=== PATIENT | female | born 1975 | race Caucasian/White ===

== ENCOUNTER 2016-10-23 05:27 | Day surgery (SDC) | payer OTHER ==
[2016-10-22 15:41] VITALS: BMI 33.3
[2016-10-23 08:29] LABS: URINE APPEARANCE SLCLOUDY; URINE BILIRUBIN NEGATIVE (NEGATIVE); URINE COLOR LTYELLOW; URINE GLUCOSE (UA) NEGATIVE (NEGATIVE); URINE KETONE NEGATIVE (NEGATIVE); URINE LEUK ESTERASE NEGATIVE (NEGATIVE); URINE NITRITE NEGATIVE (NEGATIVE); URINE PROTEIN NEGATIVE (NEGATIVE); URINE UROBILINOGEN NEGATIVE E.U./dl (0.2-1.0)
[2016-10-23 08:31] LABS: URINE BLOOD 2+ (NEGATIVE)
[2016-10-23 08:33] LABS: URINE MUCUS RARE; URINE RBC 7 /hpf (0-3); URINE WBC 1 /hpf (3-5)
[2016-10-23] MEDS ORDERED: ROCURONIUM BROMIDE 50 MG/5 ML VIAL ONE ×2 (09:07→11:08)
[2016-10-23] MEDS ORDERED: MIDAZOLAM HCL 2 MG/2 ML SINGLE DOSE VIAL ONE (09:07)
[2016-10-23] MEDS ORDERED: PROPOFOL 20 ML ONE (09:07)
--- NOTE | 2016-10-23 09:53 | HP ---
History & Physical Update - History History: No Change - Physical Physical: No Change - Assessment Assessment: No Change - Plan Plan: No Change
[2016-10-23] MEDS ORDERED: ceFAZolin SODIUM 1 GM VIAL ONE (10:05)
[2016-10-23] MEDS ORDERED: DEXAMETHASONE SOD PHOSPHATE 4 MG/1 ML VIAL ONE (10:05)
[2016-10-23] MEDS ORDERED: ceFAZolin SODIUM 1 GM VIAL IVPB ONE (10:07)
[2016-10-23] MEDS ORDERED: BUPIVACAINE HCL/PF 0.5% (5MG/ML) 10 ML VIAL IJ ONE (11:24)
[2016-10-23] MEDS ORDERED: ONDANSETRON 4 MG/2 ML VIAL IVPUSH PRN (11:28)
[2016-10-23] MEDS ORDERED: oxyCODONE HCL 5 MG TABLET PO PRN (11:28)
[2016-10-23] MEDS ORDERED: PROMETHAZINE HCL 25 MG/1 ML VIAL IVPUSH PRN (11:28)
[2016-10-23] MEDS ORDERED: LACTATED RINGERS SOLUTION 1,000 ML IV SCH (11:30)
--- NOTE | 2016-10-23 11:51 | OP ---
Operative Note - Note: Operative Date: 10/23/16 Pre-Operative Diagnosis: chronic cholecystitis; cholelithiasis Operation: lap ángel Findings: # adhesions; cholelithiasis; chronic cholecystitis Post-Operative Diagnosis: Same as Pre-op Surgeon: Ernesto Michael It Support Analyst: Gricelda Trimble Anesthesia: General Specimens Removed: gallbladder and contents Estimated Blood Loss (mls): 25 Drains & Tubes with Location: none
[2016-10-23 13:35] VITALS: TEMP 98.2
[2016-10-23 15:50] VITALS: BP 116/70; PULSE 80
--- NOTE | 2016-10-26 11:04 | OP ---
DATE OF OPERATION: 10/23/2016 PREOPERATIVE DIAGNOSIS: Chronic cholecystitis, cholelithiasis. PREOPERATIVE DIAGNOSIS: Chronic cholecystitis, cholelithiasis. PROCEDURE: Laparoscopic cholecystectomy. SURGEON: Ernesto Michael MD TRANSPORTATION SUPERINTENDENT: DONG Bonilla ANESTHESIA: General. OPERATIVE FINDINGS: There was evidence of chronic cholecystitis and cholelithiasis, multiple adhesions from previous acute cholecystitis from the omentum to the gallbladder. The rest of the findings were unremarkable. DESCRIPTION OF PROCEDURE: The patient was placed on the operating room table in supine position. After the induction of general anesthesia and the placement of sequential compression devices under the patient's lower extremity, the abdomen was prepped with ChloraPrep and draped in sterile fashion. Pneumoperitoneum was established at the umbilicus using a Veress needle, and once 15 mmHg was obtained, the 5-mm port was placed, and additional 5-mm lateral ports in the subxiphoid 11-mm port, and a laparoscopy carried out, and the previously noted findings were observed. Using blunt dissection and electrocautery, omentum was taken down from the gallbladder to expose the neck of the gallbladder and the triangle of Calot where the peritoneum was opened medially and laterally using electrocautery. The cystic duct was identified crossing from the neck of the gallbladder distally to the common bile duct. It was dissected proximally and distally . Additionally, the cystic artery was similarly identified and dissected. Once a critical view of safety was taken, the duct and artery were sequentially divided after being clipped twice distally with large hemoclips and twice proximally as well. The gallbladder was then removed from the liver bed in a retrograde fashion using electrocautery. Prior to removal from the edge of the liver, hemostasis was checked for and noted to be good. The gallbladder was removed from the edge of the liver, placed in an EndoCatch, and brought out through the subxiphoid port. Pneumoperitoneum was reestablished, hemostasis verified again, then all ports were removed under laparoscopic vision without evidence of bleeding from the port sites. All port sites were then infiltrated with 0.5% Marcaine and the skin edges were reapproximated with 4-0 Biosyn in a subcuticular and continuous fashion. Steri-Strips and Band-Aid dressings were placed and the procedure terminated at this point and the patient aroused from general anesthesia and transferred to the post anesthesia care unit in stable condition awake and alert. ESTIMATED BLOOD LOSS: Minimal. DRAINS: None. SPECIMENS: Gallbladder and contents fresh to pathology. I, Ernesto Michael, was physically present in the operating room from the time the patient was placed on the operating room table until she was transferred to the post anesthesia care unit in [employer]. MD TOSHA Johnson/[id number]
--- NOTE | 2016-10-26 13:54 | PATH ---
Surgical Pathology Report Patient Name: NEEL MELENDREZ [facility]. Rec. #: [id number] /Age/Gender: 1975 (Age: 41) / F Account: [id number] Location: [facility] SURGICAL Taken: 10/23/2016 Received: 10/23/2016 Reported: 10/26/2016 Physicians: Ernesto Michael MD Specimen(s) Received GALLBLADDER Clinical History Chronic cholecystitis Final Diagnosis GALLBLADDER, CHOLECYSTECTOMY: CHRONIC CHOLECYSTITIS WITH FOCAL XANTHOGRANULOMATOUS FEATURES; CHOLELITHIASIS. Electronically Signed Marciano Dailey M.D. Gross Description Received in formalin, labeled "gallbladder" is a 9.3 x 2.0 x 2.0 cm gallbladder with a 0.2 cm in length portion of cystic duct attached. The outer surface is davison-pink with a focal defect and varies from smooth to shaggy. The lumen contains red blood as well as a 2.2 cm in greatest dimension davison, ovoid cholelith. The mucosa is hyperemic. The wall of the gallbladder is focally thickened and measures up to 1.0 cm in thickness. Director Of Accounts Receivable sections are submitted in one cassette. /10/23/2016 saudi10/23/2016
--- NOTE | 2016-10-27 09:39 | SURG ---
Surgery Director Digital Analytics Note Director Digital Analytics: Gricelda Trimble PA-C Date of Service: 10/23/16 Diagnosis: chronic cholecystitis; cholelithiasis Procedure: corona neal I was present for the entirety of the operative procedure. For further detail, please refer to operative report. Visit type - Case Type Case Type: Scheduled Admission - Emergency Emergency Visit: No - New patient This patient is new to me today: Yes Date on this admission: 10/27/16 - Critical Care Critical Care patient: No
== END 2016-10-23 15:00 | disposition home or self-care (01) ==
LOC: JASU-SURG 05:27
PROVIDERS: ATTEND Surgery
PROC: 0FT44ZZ Resection of Gallbladder, Percutaneous Endoscopic Approach (ICD-10-PCS; principal; 2016-10-23 09:30)
DX: K80.10 Calculus of gallbladder with chronic cholecystitis without obstruction (principal)
CPT/HCPCS: 36415; 81003; 81015; 82947; 84702; 86850; 86900; 86901; 88304-TC; 94760

== ENCOUNTER 2018-08-02 05:05 | Inpatient (IN) | payer OTHER ==
[2018-08-02] MEDS ORDERED: DEXAMETHASONE SOD PHOSPHATE/PF 10 MG/ML SDV ONE (09:36)
[2018-08-02] MEDS ORDERED: BUPIVACAINE HCL/PF 0.25% (2.5MG/ML) 10 ML VIAL ONE (09:36)
[2018-08-02] MEDS ORDERED: MIDAZOLAM HCL 2 MG/2 ML SINGLE DOSE VIAL ONE ×2 (09:38)
[2018-08-02] MEDS ORDERED: LIDOCAINE HCL/PF 2% SDV 5ML VIAL ONE (09:40)
[2018-08-02] MEDS ORDERED: ceFAZolin SODIUM 1 GM VIAL ONE (09:40)
[2018-08-02] MEDS ORDERED: SUCCINYLCHOLINE CHLORIDE 200 MG/10 ML VIAL ONE (09:40)
[2018-08-02] MEDS ORDERED: DEXAMETHASONE SOD PHOSPHATE 4 MG/1 ML VIAL ONE (09:40)
[2018-08-02] MEDS ORDERED: SODIUM CHLORIDE 0.9% P/F 10 ML VIAL IJ ONE (09:40)
[2018-08-02] MEDS ORDERED: ROCURONIUM BROMIDE 50 MG/5 ML VIAL ONE (09:40)
[2018-08-02] MEDS ORDERED: LACTATED RINGERS SOLUTION 1,000 ML IV SCH (09:45)
[2018-08-02 10:14] VITALS: BMI 35.3
[2018-08-02] MEDS ORDERED: KETAMINE HCL 200 MG/20 ML VIAL ONE (11:22)
[2018-08-02] MEDS ORDERED: ceFAZolin SODIUM 1 GM VIAL IVPB ONE (11:45)
--- NOTE | 2018-08-02 11:51 | HP ---
Admitting History and Physical - Admission Chief Complaint: Morbid obesity History Source: Patient Limitations to Obtaining History: No Limitations - Past Medical History ...LMP: 07/14/18 Endocrine: Yes: Diabetes Mellitus - Smoking History Smoking history: Never smoked Have you smoked in the past 12 months: No - Alcohol/Substance Use Hx Alcohol Use: No Home Medications - Allergies Allergies/Adverse Reactions: Allergies Allergy/AdvReac Type Severity Reaction Status Date / Time No Known Allergies Allergy Verified 08/02/18 09:31 - Home Medications Home Medications: Ambulatory Orders Glimepiride 4 mg PO BID 08/01/18 Famotidine [Pepcid] 20 mg PO BID #60 tablet 08/02/18 Oxycodone HCl/Acetaminophen [Percocet 5-325 mg Tablet] 1 - 2 tab PO Q6H #28 tab MDD 4 08/02/18 Family Disease History - Family Disease History Family History: Denies Review of Systems - Review of Systems Constitutional: denies: Chills, Fever HENT: reports: No Symptoms Neck: reports: No Symptoms Cardiovascular: reports: No Symptoms Respiratory: reports: No Symptoms Gastrointestinal: reports: No Symptoms Neurological: reports: No Symptoms Pain Intensity: 0 Physical Examination Vital Signs: Vital Signs Temperature 98.3 F 08/02/18 09:29 Pulse Rate 90 08/02/18 09:29 Respiratory Rate 16 08/02/18 09:29 Blood Pressure 130/83 08/02/18 09:29 O2 Sat by Pulse Oximetry (%) 100 08/02/18 09:30 Constitutional: Yes: Calm HENT: Yes: WNL Neck: Yes: WNL Cardiovascular: Yes: WNL Respiratory: Yes: WNL Gastrointestinal: Yes: Soft, Abdomen, Obese Neurological: Yes: Alert, Oriented Problem List - Problems (1) Morbid obesity due to excess calories Code(s): E66.01 - MORBID (SEVERE) OBESITY DUE TO EXCESS CALORIES (2) BMI 35.0-35.9,adult Code(s): Z68.35 - BODY MASS INDEX (BMI) 35.0-35.9, ADULT (3) Diabetes mellitus type 2 in obese Code(s): E11.69 - TYPE 2 DIABETES MELLITUS WITH OTHER SPECIFIED COMPLICATION; E66.9 - OBESITY, UNSPECIFIED Assessment/Plan Laparoscopic possible open vertical sleeve gastrectomy, possible liver biopsy, EGD
[2018-08-02] MEDS ORDERED: BUPIVACAINE HCL/PF (5 MG/ML) 30 ML VIAL IJ ONE (12:07)
[2018-08-02] MEDS ORDERED: ESMOLOL HCL 100,000 MCG/10 ML VIAL ONE (12:27)
[2018-08-02] MEDS ORDERED: NEOSTIGMINE METHYLSULFATE 0.5 MG/ML - 10 ML MDV ONE (12:45)
[2018-08-02] MEDS ORDERED: GLYCOPYRROLATE 0.2 MG/1 ML VIAL ONE (12:45)
[2018-08-02] MEDS ORDERED: KETOROLAC TROMETHAMINE 30 MG/1 ML VIAL ONE (12:45)
[2018-08-02] MEDS ORDERED: HYDROmorphone HCl 2 MG/ML VIAL IVPB PRN (12:54)
--- NOTE | 2018-08-02 12:57 | OP ---
Operative Note - Note: Operative Date: 08/02/18 Pre-Operative Diagnosis: Morbid obesity. BMI 35.4. Diabetes Mellitus type 2 Operation: Laparoscopic vertical sleeve gastrectomy, liver biopsy, EGD Post-Operative Diagnosis: Other (as well as hepatomegaly) Surgeon: Emigdio Gaona Adobe Maker: Kip Liz Anesthesia: General Specimens Removed: Greater curvature of stomach. Liver biopsy Estimated Blood Loss (mls): 30 Drains & Tubes with Location: 36 fr Bougie Operative Report Dictated: Yes
[2018-08-02] MEDS: SODIUM CHLORIDE 1,000 ML IV SCH (13:10)
--- NOTE | 2018-08-02 13:11 | SURG ---
Surgery Medical Laboratory Technologist Note Medical Laboratory Technologist: Kip Liz PA-C Date of Service: 08/02/18 Diagnosis: Morbid obesity due to excess calories Procedure: Laproscopic sleeve gastrectomy, EGD, liver biopsy I was present for the entirety of the operative procedure. For further detail, please refer to operative report. Visit type - Case Type Case Type: Scheduled - Emergency Emergency Visit: No - New patient This patient is new to me today: Yes Date on this admission: 08/02/18
--- NOTE | 2018-08-02 13:22 | SPEC ---
DATE OF OPERATION: 08/02/2018 SURGEON: Emigdio Gaona MD MECHANICAL FIELD ENGINEER: Kip Liz PA-C PREOPERATIVE DIAGNOSES: 1. Morbid obesity. 2. Body mass index of 35.4. 3. Diabetes mellitus type 2. POSTOPERATIVE DIAGNOSIS: 1. Morbid obesity. 2. Body mass index of 35.4. 3. Diabetes mellitus type 2. 4. Hepatomegaly. PROCEDURE: 1. Laparoscopic vertical sleeve gastrectomy. 2. Laparoscopic wedge liver biopsy. 3. Esophagogastroduodenoscopy. SPECIMEN: 1. Greater curvature of the stomach. 2. Liver biopsy. ESTIMATED BLOOD LOSS: 30 mL. DRAINS: None. ANESTHESIA: GET. BOUGIE SIZE: 36-[place]. REASON FOR PROCEDURE: This is a 43-year-old female who presents to the office for weight loss options. After describing the different options, he decided to proceed with a laparoscopic, possible open vertical sleeve gastrectomy, possible liver biopsy, and upper endoscopy. The patient was seen by the respective subspecialties and cleared for surgery. The risks and benefits of the procedure were explained. These included bleeding, infection, hernia, GA, DVT, PE, injury to surrounding structures including the liver, colon, bowel, spleen, esophagus, vessel injury, nerve injury, weight regain, gastric leak, staple line leak, sleeve leak, obstruction, vitamin deficiency, hair loss and as some of the possible complications. The patient understood and signed informed consent. DESCRIPTION OF PROCEDURE: The patient was placed supine on the operating room table. The patient underwent general endotracheal intubation. The arms were brought out at 90 degrees and secured. A footboard was placed and the legs were secured laterally with padding. The abdomen was prepped and draped in the usual sterile fashion. A timeout was performed. An incision was made in the left upper quadrant and a Veress needle inserted. Pneumoperitoneum was established. Subsequently, the Veress needle was removed and a 5-mm trocar was placed under direct visualization with the laparoscope. The laparoscopic camera was then inserted and inspection of the abdominal cavity was performed. An incision was then made in the supraumbilical area and a 15-mm trocar was placed under direct visualization. A 5-mm trocar was then placed in the right upper quadrant and a 5-mm trocar was placed below the left subcostal margin. A stab wound was made in the subxiphoid area and a Tuyet clamp inserted and removed to dilate the tract. A John liver retractor was inserted. The post was secured at the bedside by the nursing staff. The patient was placed in steep reverse Trendelenburg position and the John liver retractor was used to secure the liver towards the anterior abdominal wall. The pylorus was identified and 6 cm proximal to it, the lesser sac was entered using the LigaSure device. All lateral attachments to the greater curvature of the stomach, including the short gastric vessels, were ligated using the LigaSure device toward the gastrosplenic and gastrophrenic ligaments. Once this was done in its entirety, it was confirmed that all tubes within the nasal or oropharyngeal cavity, including a temperature probe, was removed by Anesthesia. The bougie was then inserted by Anesthesia. Transection of the stomach was then begun staying adjacent to the bougie but away from the angularis. Transection of the stomach was performed near the portion of the stomach where the lesser sac was entered. Two laparoscopic Endo-LESLIE black sal were used at this location. Laparoscopic Endo LESLIE purple staple loads were then used for the remainder of the transection until the greater curvature of the stomach was fully transected. This was done staying close to the bougie. Care was taken to stay away from the angle of His cephalad. The staple line was then inspected. Hemostasis was identified. A leak test was then performed. It was clamped distally to the staple line. Irrigation solution was placed in the left upper quadrant and air was insufflated by Anesthesia into the sleeve. No leaks were identified. No obstruction was identified. This was done through the entirety of the staple line. In addition, an upper endoscopy was performed. The endoscope was placed into the patients mouth and the entirety of the esophagus, GE junction, gastric pouch and staple line were inspected. No obstruction or leak was noted. The stomach was suctioned and the endoscope removed fully intact. At this point, the irrigation solution was suctioned and again, hemostasis was noted. A wedge liver biopsy was then performed. The left lobe of the liver was identified and a portion of the edge was grasped. Using electrocautery, a wedge of the liver was excised. This was removed and sent off the field as specimen. Hemostasis at the site of the wedge liver biopsy was attained using electrocautery. The 15-mm supraumbilical trocar was then removed and the greater curvature specimen removed from the site using a sponge stick solano. The specimen was inspected and a Veress needle inserted. The specimen insufflated adequately and no leak was identified. The staple line was noted to be intact. A Jhoan-Nelly device was then used to close the fascia with a 0 Vicryl suture at the site. Again, hemostasis was noted. The John liver retractor was then removed under direct visualization. Pneumoperitoneum was desufflated and the fascial sutures were secured. Hemostasis was noted at all incision sites and Marcaine was injected at all incision sites. All incision sites were closed using 4-0 Biosyn. Sterile dressings were applied. The patient tolerated the procedure well and was transferred to the recovery room in stable condition. The patient was transferred to telemetry for further monitoring. Silas [id number]
[2018-08-02] MEDS: ONDANSETRON 4 MG/2 ML VIAL IVPUSH PRN ×2 (13:25→17:41)
[2018-08-02] MEDS: METOCLOPRAMIDE HCL INJECTION 10 MG/2 ML VIAL IVPUSH SCH ×2 (13:30→20:29)
[2018-08-02] MEDS: ACETAMINOPHEN 1000 MG/100 ML VIAL (NON FORMULARY) IVPB SCH ×2 (13:35→20:30)
[2018-08-02] MEDS: ONDANSETRON 4 MG/2 ML VIAL IVPUSH SCH ×3 (13:35→20:29)
[2018-08-02 13:56] LABS: HEMATOCRIT 37.8 % (32.4-45.2); HEMOGLOBIN 12.9 GM/dL (10.7-15.3); MCH 28.9 pg (25.7-33.7); MCHC 34.2 g/dl (32.0-36.0); MEAN CELL VOLUME 84.4 fl (80-96); MEAN PLT VOLUME 9.3 fl (7.5-11.1); PLATELET COUNT 180 K/MM3 (134-434); RBC 4.48 M/mm3 (3.60-5.2); RDW 13.2 % (11.6-15.6); WHITE BLOOD COUNT 11.8 K/mm3 (4.0-10.0)
[2018-08-02 14:27] LABS: ALBUMIN 2.9 g/dl (3.4-5.0); ALK PHOS 128 U/L (45-117); ANION GAP 7 MMOL/L (8-16); BILIRUBIN,TOTAL 0.5 mg/dL (0.2-1); BLOOD UREA NITROGEN 10 mg/dL (7-18); CALCIUM 8.3 mg/dL (8.5-10.1); CHLORIDE 99 mmol/L (98-107); CO2 27 mmol/L (21-32); CREATININE 0.8 mg/dL (0.55-1.3); GLUCOSE,RANDOM 278 mg/dL (74-106); POTASSIUM 4.3 mmol/L (3.5-5.1); SGOT/AST 81 U/L (15-37); SGPT/ALT 46 U/L (13-61); SODIUM 132 mmol/L (136-145)
[2018-08-02] MEDS ORDERED: ONDANSETRON 4 MG/2 ML VIAL ONE (17:35)
[2018-08-02] MEDS: INSULIN SLIDING SCALE (NOVOLOG) 1 VIAL SQ SCH (19:00)
[2018-08-02] MEDS: FAMOTIDINE 20 MG/50 ML IVPB 20 MG/50 ML MG IVPB SCH (22:03)
[2018-08-02] MEDS: ENOXAPARIN NA (PORCINE) 40 MG/0.4 ML DISP.SYRIN SQ SCH (22:03)
[2018-08-03] MEDS: METOCLOPRAMIDE HCL INJECTION 10 MG/2 ML VIAL IVPUSH SCH ×3 (02:08→15:04)
[2018-08-03] MEDS: ONDANSETRON 4 MG/2 ML VIAL IVPUSH SCH ×4 (02:08→15:04)
[2018-08-03] MEDS: ACETAMINOPHEN 1000 MG/100 ML VIAL (NON FORMULARY) IVPB SCH ×2 (02:08→09:08)
[2018-08-03] MEDS: INSULIN SLIDING SCALE (NOVOLOG) 1 VIAL SQ SCH ×2 (06:05→11:40)
[2018-08-03 07:11] LABS: HEMATOCRIT 40.7 % (32.4-45.2); HEMOGLOBIN 14.4 GM/dL (10.7-15.3); MCH 29.8 pg (25.7-33.7); MCHC 35.4 g/dl (32.0-36.0); MEAN CELL VOLUME 84.2 fl (80-96); MEAN PLT VOLUME 9.8 fl (7.5-11.1); PLATELET COUNT 232 K/MM3 (134-434); RBC 4.84 M/mm3 (3.60-5.2); RDW 13.1 % (11.6-15.6)
[2018-08-03 07:52] LABS: ALBUMIN 2.9 g/dl (3.4-5.0); ALK PHOS 134 U/L (45-117); ANION GAP 9 MMOL/L (8-16); BILIRUBIN,TOTAL 0.8 mg/dL (0.2-1); BLOOD UREA NITROGEN 10 mg/dL (7-18); CALCIUM 8.4 mg/dL (8.5-10.1); CHLORIDE 101 mmol/L (98-107); CO2 25 mmol/L (21-32); CREATININE 0.9 mg/dL (0.55-1.3); GLUCOSE,RANDOM 260 mg/dL (74-106); POTASSIUM 4.1 mmol/L (3.5-5.1); SGOT/AST 44 U/L (15-37); SGPT/ALT 46 U/L (13-61); SODIUM 135 mmol/L (136-145); TOT PROT 7.6 g/dl (6.4-8.2)
[2018-08-03] MEDS: ENOXAPARIN NA (PORCINE) 40 MG/0.4 ML DISP.SYRIN SQ SCH (09:08)
[2018-08-03] MEDS: SODIUM CHLORIDE 1,000 ML IV SCH (09:10)
[2018-08-03] MEDS: FAMOTIDINE 20 MG/50 ML IVPB 20 MG/50 ML MG IVPB SCH (09:18)
[2018-08-03] MEDS ORDERED: oxyCODONE HCL 5 MG TABLET PO PRN (09:52)
--- NOTE | 2018-08-03 09:58 | PN ---
Progress Note (short form) - Note Progress Note: Surgery POD #1 laparoscopic vertical sleeve gastrectomy seen and examined at bedside. Patient doing well with no complaints. Patient has been OOB and ambulating without assistance, voiding and her pain is controlled. She denies any CP, SOB, N/V Fever or chills. Vital Signs Temp 98.3 F 08/03/18 08:57 Pulse 71 08/03/18 08:57 Resp 18 08/03/18 08:57 BP 146/89 08/03/18 08:57 Pulse Ox 98 08/03/18 08:58 Intake & Output 08/02/18 08/02/18 08/03/18 11:59 23:59 11:59 Intake Total 1500 1000 1000 Output Total 2835 Balance 1500 -1835 1000 Intake: IV 900 1000 900 Normal Saline - 1,000 ml 900 @ 150 mls/hr IV ASDIR HIGINIO Rx#:[id number] IVPB 100 Other 600 Output: Urine 2800 Estimated Blood Loss 35 Other: Voiding Method Toilet Toilet # Unmeasured Voids Void 2 CBC, BMP 08/03/18 06:30 08/03/18 06:30 PE: A&Ox3, NAD Unlabored resp on RA ABD: Obese, ND, and mildly TTP throughout appropriate to status, incisions dressings c/d/i with surrounding tissue intact and no active d/c LE compatments soft, supple and non-tender to palpation with +2 DP pulse. Upper GI seriie: no evidence of leak Problem List - Problems (1) S/P laparoscopic sleeve gastrectomy Assessment/Plan: POD #1 Laparoscopic vertical doing well. 1) Start BS1D 2) OOb as tolerated up to chair for meals 3) encourage IS 4) plan for d/c home later this afternoon if tolerating diet Evaluation and plan discussed with Dr Gaona. Code(s): Z98.84 - BARIATRIC SURGERY STATUS
[2018-08-03] MEDS ORDERED: SODIUM CHLORIDE 1,000 ML IV SCH (10:00)
[2018-08-03 14:40] VITALS: BP 135/86; PULSE 73; TEMP 98.6
--- NOTE | 2018-08-03 16:10 | DS ---
Physical Exam: SUBJECTIVE: Patient seen and examined. POD #1 laparoscopic vertical sleeve gastrectomy seen and examined at bedside. Patient doing well with no complaints. Patient has been OOB and ambulating without assistance, voiding and her pain is controlled. She denies any CP, SOB, N/V Fever or chills. OBJECTIVE: Vital Signs Period Temp Pulse Resp BP Sys/Vela Pulse Ox Last 24 Hr 97.8 F-98.6 F 71-99 16-28 129-149/79-90 98-100 PHYSICAL EXAM PE: A&Ox3, NAD Unlabored resp on RA ABD: Obese, ND, and mildly TTP throughout appropriate to status, incisions dressings c/d/i with surrounding tissue intact and no active d/c LE compatments soft, supple and non-tender to palpation with +2 DP pulse. LABS Laboratory Results - last 24 hr 08/02/18 08/02/18 08/03/18 18:50 22:02 05:53 WBC RBC Hgb Hct MCV MCH MCHC RDW Plt Count MPV Sodium Potassium Chloride Carbon Dioxide Anion Gap BUN Creatinine Creat Clearance w eGFR POC Glucometer 320 254 254 Random Glucose Calcium Total Bilirubin AST ALT Alkaline Phosphatase Total Protein Albumin 08/03/18 08/03/18 08/03/18 06:30 06:30 11:36 WBC 11.0 H RBC 4.84 Hgb 14.4 Hct 40.7 MCV 84.2 MCH 29.8 MCHC 35.4 RDW 13.1 Plt Count 232 D MPV 9.8 Sodium 135 L Potassium 4.1 Chloride 101 Carbon Dioxide 25 Anion Gap 9 BUN 10 Creatinine 0.9 Creat Clearance w eGFR > 60 POC Glucometer 240 Random Glucose 260 H Calcium 8.4 L Total Bilirubin 0.8 AST 44 H ALT 46 Alkaline Phosphatase 134 H Total Protein 7.6 Albumin 2.9 L HOSPITAL COURSE: The patient was admitted to the Med-Surg Unit after an elective bariatric surgery. Now, s/p laparoscopic vertical sleeve gastrectomy. The day of surgery, the patient ambulated the hallways with assistance. Narcotic and non-narcotic pain management control was achieved with oral and IV pain control. The patient was monitored with remote tele/continuous pulse ox. Upper Gi series was obtained the following morning and noted to be within normal limits, diet was advanced. Solange-operative IV ABX were administered in addition to GI prophylaxis. DVT prophylaxis was achieved with SCDs and early ambulation. [employer] [employer]ACHINE prior to escibe. The discharge instructions and an oral pain management plan were reviewed with the patient. All questions answered. Above plan discussed with Dr. Gaona and agreed. Date of Admission:08/02/18 Date of Discharge: 08/03/18 Minutes to complete discharge: 15 Discharge Summary Reason For Visit: MORBID OBESITY Current Active Problems BMI 35.0-35.9,adult (Acute) Diabetes mellitus type 2 in obese (Acute) Hepatomegaly (Acute) Morbid obesity due to excess calories (Acute) S/P laparoscopic sleeve gastrectomy (Acute) - Instructions Diet, Activity, Other Instructions: [address] [facility], 1st Floor Emigdio Gaona M.D. [address] [facility], 5th Floor Suit[address] Yasmine Walters [id number] [place] [address] Weight [facility] [place] [address] Robotic, Bariatric and General Surgery Postoperative Instructions for Bariatric Surgery Activity: Resume normal everyday activity as tolerated. You may walk and climb stairs without any limitation. We encourage you to walk as often as you can Do not lift anything more than 10 pounds for 8 weeks. At that time, you can return to full activity, including the gym, without limitation. Do not drive a motor vehicle while taking prescribes narcotic pain medication. Wound Care: If you have a bandage in place, leave it on for 3 days. At that time you may remove the outer bandage. If there are strips of tape on the skin after removing the outer bandage, leave them in place. They will fall off by themselves. Do not remove them. If there is clear glue on the skin after removing the outer bandage, leave it in place. Do not pick at it or peel it off. You may shower after taking the outer bandage off, 3 days after your surgery. If incisions become red, warm or open, please call the office. Diet: Continue a sugar-free, non-carbonated Clear liquid diet three times a day for the first week-Stage I diet. In addition, you should drink 8 ounces of water every hour. When drinking, sips should be slow and steady, not large and quick. After the first week, call the office to be advanced to the next dietary stage. Do not advance stages until instructed. Your diet will be advanced over the phone each week. Medications/Pain Management: You may resume previous medications unless told otherwise. The pills may be swallowed whole or broken if scored. You may take the prescribed narcotic pain medication as needed. If the narcotic medication is not needed for pain control, you may take Tylenol. Avoid all other pain medications including Advil, Ibuprofen, Motrin, Aspirin, Naprosyn, Aleve, Celebrex. You will receive Pepcid. Please take this twice a day as prescribed. Dizziness,Headaches/Gas Pain: Make sure you are getting enough fluids daily. Patients on diuretics or water pills may need medication adjusted. Some fluids such as broth or Gatorade may help. Gas pains are common in the first few weeks after surgery. At times they can be worse than surgical pain. Walking can help. You can also use Mylanta, Maalox, or Gas-X. Vomiting/Nausea: This may occur if you eat too fast, don't chew, or eat too much. Go back to fluids. If the vomiting or nausea persists, call the office. Constipation/Diarrhea: You may experience a change in bowel habits. Many things affect this, including a decrease in food intake, not enough fluid and taking pain medication. Some people experience diarrhea after the barium swallow in x-ray. If either persist, call the office. Follow up: Call the office at [phone] for an appointment 2 weeks after your surgical procedure. Disposition: HOME - Home Medications Comprehensive Discharge Medication List: Ambulatory Orders Glimepiride 4 mg PO BID 08/01/18 Famotidine [Pepcid] 20 mg PO BID #60 tablet 08/02/18 Oxycodone HCl/Acetaminophen [Percocet 5-325 mg Tablet] 1 - 2 tab PO Q6H #28 tab MDD 4 08/02/18 Problem List - Problems (1) BMI 35.0-35.9,adult Code(s): Z68.35 - BODY MASS INDEX (BMI) 35.0-35.9, ADULT This patient is new to me today: Yes Date on this admission: 08/05/18 Emergency Visit: No Critical Care patient: No - Discharge Referral Referred to [facility] Med P.C.: No
--- NOTE | 2018-08-04 17:00 | PATH ---
Surgical Pathology Report Patient Name: NEEL MELENDREZ [facility]. Rec. #: [id number] /Age/Gender: 1975 (Age: 43) / F Account: [id number] Location: 4 SO PEDS/ADOL Taken: 08/02/2018 Received: 08/03/2018 Reported: 08/04/2018 Physicians: Emigdio Gaona M.D. Specimen(s) Received A: GREATER CURVATURE STOMACH B: LIVER BIOPSY Clinical History Morbid obesity Final Diagnosis A. STOMACH, GREATER CURVATURE, LAPAROSCOPIC VERTICAL SLEEVE GASTRECTOMY: PORTION OF STOMACH WITH MODERATE CHRONIC GASTRITIS. IMMUNOHISTOCHEMICAL STAIN FOR H. PYLORI IS POSITIVE (FEW). B. LIVER, BIOPSY: STEATOHEPATITIS, MILD; SEVERE STEATOSIS (~70%). MILD PERIVENULAR, MILD PERISINUSOIDAL, PORTAL AND FOCAL PERIPORTAL FIBROSIS (STAGE I OF 4). SEE COMMENT. Comment: Biopsy is subcapsular with areas of thermal artifact. The liver parenchyma demonstrates severe mixed macro and macrovesicular steatosis (~70%). Focal mild mixed inflammatory infiltrate is seen in portal tracts and within sinusoids. No significant interface activity is present. No plasmacytosis is present. No significant bile injury is seen. No granulomas are present. Focal hepatocyte ballooning is noted. No definitive Tati hyaline is identified. The trichrome stain highlights mild perivenular, mild perisinusoidal, portal and focal mild periportal fibrosis. No increase in iron seen by Iron special stain. Overall, findings show mild steatohepatitis and severe steatosis; stage 1 of 4 (Brunt). Etiologies include alcohol and alcoholic liver injury including metabolic conditions, drug or toxin injury. Suggest clinical and serologic correlation. Electronically Signed Mariann Butcher M.D. Gross Description A. Received in formalin, labeled "greater curvature of stomach," is a 118 gram, 18.5 x 4.0 x 3.2 cm. portion of stomach with a stapled margin of resection. The serosa is davison-arteaga with minimal attached fat. The mucosa is davison-pink with normal folds. No mucosal masses are identified. Perfect Bind Machine Operator sections are submitted in one cassette. B. Received in formalin labeled "liver biopsy," is a 1.8 x 1.5 x 0.3 cm davison portion of soft tissue, consistent with a liver biopsy. The specimen is submitted in toto in one cassette. 08/03/201808/03/2018
== END 2018-08-03 16:22 | disposition home or self-care (01) | DRG 403 ==
LOC: JSAMEDAYSX 05:05 → EDSTATUS 10:30 → J4S 19:52
PROVIDERS: ADMIT Surgery; ATTEND Surgery
PROC: 0DB64Z3 Excision of Stomach, Percutaneous Endoscopic Approach, Vertical (ICD-10-PCS; principal; 2018-08-02 10:30)
PROC: 0FB24ZX Excision of Left Lobe Liver, Percutaneous Endoscopic Approach, Diagnostic (ICD-10-PCS; 2018-08-02 10:30)
PROC: 0DJ08ZZ Inspection of Upper Intestinal Tract, Via Natural or Artificial Opening Endoscopic (ICD-10-PCS; 2018-08-02 10:30)
DX: E66.01 Morbid (severe) obesity due to excess calories (principal); E11.9 Type 2 diabetes mellitus without complications; R16.0 Hepatomegaly, not elsewhere classified; Z68.35 Body mass index [BMI] 35.0-35.9, adult
CPT/HCPCS: 36415; 74241-TC-FY; 80053; 82962; 84703; 85027; 86850; 86900; 86901; 88307-TC; 94010; 94760; J0131; J7030